=== PATIENT | female | born 1960 | race Two or more races ===

== ENCOUNTER 2017-03-29 05:45 | Day surgery (SDC) | payer BC ==
[2017-03-25 12:42] VITALS: BMI 31.3
[2017-03-29] MEDS ORDERED: Midazolam 2 MG/2 ML VIAL ONE (07:56)
[2017-03-29] MEDS ORDERED: Propofol 10 mg/ml Inj (20 ML) ONE (07:56)
[2017-03-29] MEDS ORDERED: HYDROmorphone 0.5 mg/0.5 ml ISec IVP PRN (09:21)
[2017-03-29] MEDS ORDERED: Silver Nitrate Topical - Stick ONE (09:28)
[2017-03-29] MEDS ORDERED: Clindamycin 2% Vaginal Cream(40 gm) ONE (09:33)
[2017-03-29 10:55] VITALS: RESP 16; O2SAT 98
[2017-03-29 11:42] VITALS: BP 117/65; PULSE 74; TEMP 97.8
--- NOTE | 2017-03-29 17:00 | PCM.SURG1 ---
Surgeon's Initial Post Op Note - Surgeon's Notes Surgeon: Laurel Hodge MD Narcotics And/Or Vice Detective: none Type of Anesthesia: General LMA Pre-Operative Diagnosis: postmenopuasla bleeidng Operative Findings: anteverted uterus with enlarged prolpasing cervial myoma, bilaterl ostia visualized, with mass attached to fundal region, cervix dilated 2.5cm Post-Operative Diagnosis: prolpasoing myoma, endometiral mass, postmenopauals bleeidng Operation Performed: Hysteroscopic myomecotmy, resection of endomteiral mass, Dilatin and curettage Specimen/Specimens Removed: vaginal leiomyomoma, endometiral mass, endocervical curretting, endometiral currettings Estimated Blood Loss: EBL {In ML}: 50 Blood Products Given: N/A Drains Used: No Drains Post-Op Condition: Good Date of Surgery/Procedure: 03/29/17 Time of Surgery/Procedure: 09:00
--- NOTE | 2017-03-30 02:08 | OP ---
PROCEDURE DATE: 03/29/2017. SURGEON: Laurel Hodge MD. SENIOR NETWORK SECURITY ARCHITECT: None. TYPE OF ANESTHESIA: General LMA. PREOPERATIVE DIAGNOSIS: Post menopausal bleeding. OPERATIVE FINDINGS: Anteverted uterus with large prolapsing cervical myoma, bilateral ostia visualized with mass attached to fundal region. Cervix dilated 2.5 cm. POSTOPERATIVE DIAGNOSES: Prolapsing myoma, endometrial mass, postmenopausal bleeding. OPERATIONS PERFORMED: Hysteroscopic myomectomy with resection of endometrial mass, dilatation and curettage. SPECIMEN REMOVED: Vaginal leiomyoma, endometrial mass, endocervical curettings, endometrial curettings. ESTIMATED BLOOD LOSS: 50 mL BLOOD PRODUCTS: None. COMPLICATIONS: None. DESCRIPTION OF PROCEDURE: The patient was taken to the operating room where she was given general anesthesia. Once it was found to be adequate, she was positioned on the operating table in dorsal supine position with the legs supported using stirrups. The patient was then prepped and draped in the usual sterile fashion. A time-out was confirmed correct patient and correct procedure. Bimanual exam was performed with the above-mentioned findings. A red rubber catheter was then inserted into the urethra to drain the bladder, 30 mL of clear urine was obtained. A Akins retractor was placed on the anterior and posterior fornix of the vagina. The cervix was adequately visualized. The cervix appeared 2.5 cm dilated and there was a mass protruding within the vagina approximately 2.5 cm length and width into the vagina which appeared to be a myoma. Endocervical curettings were obtained and sent to pathology on [facility]. Following this, the uterus was attempted to be sounded and dilated carefully. The hysteroscope was then inserted carefully and a myoma was noted to be noted at the lower uterine segment and there was an endometrial mass noted attached to the fundal region throughout the entire cavity, elongating the entire cavity length. The mucosal myoma was then removed using the MyoSure device and the endometrial mass was also resected as well in entirety. There appeared to be a continuous lesion. Bilateral ostia were visualized following this and endometrial curettings were obtained 360 degrees until gritty texture was noted. Specimen was sent to pathology and labeled as endometrial curettings. All instruments were removed. There was good hemostasis noted at the tenaculum puncture sites. At the end of the procedure, all needle, sponge and instrument counts were noted and correct x2. The patient tolerated the procedure well and was transferred to the recovery room in stable condition. Laurel Hodge MD
== END 2017-03-29 11:36 | disposition home or self-care (01) ==
LOC: C.SDS 05:45
PROVIDERS: ATTEND Obstetrics & Gynecology
DX: N84.0 Polyp of corpus uteri (principal); N88.8 Other specified noninflammatory disorders of cervix uteri; N95.0 Postmenopausal bleeding
CPT/HCPCS: 58561; 88305; J2250; J2704; J3010